=== PATIENT | female | born 1975 ===

== ENCOUNTER 2022-08-01 07:50 | Day surgery (SDC) | payer OTHER ==
[~2022-08-01] VITALS: Ht 177.8 cm; Wt 82.9 kg
[2022-08-01] MEDS ORDERED: CALCA500S6 (08:03)
[2022-08-01] MEDS ORDERED: CLOBETASOL EMOL15 G1 (08:03)
[2022-08-01] MEDS ORDERED: CLIMARA1 EACH (08:03)
[2022-08-01] MEDS ORDERED: ZINC15 (08:04)
[2022-08-01] MEDS ORDERED: Vitamin B-12100 MCG (08:04)
== END 2022-08-01 10:15 | disposition home or self-care (01) ==
LOC: ORSCSDS 07:50
PROVIDERS: Student in an Organized Health Care Education/Training Program
PROC: 0DBN8ZX Excision of Sigmoid Colon, Via Natural or Artificial Opening Endoscopic, Diagnostic (ICD-10-PCS; principal; 2022-08-01 09:00)
PROC: 0DBL8ZX Excision of Transverse Colon, Via Natural or Artificial Opening Endoscopic, Diagnostic (ICD-10-PCS; principal; 2022-08-01 09:00)
PROC: 0DBK8ZX Excision of Ascending Colon, Via Natural or Artificial Opening Endoscopic, Diagnostic (ICD-10-PCS; principal; 2022-08-01 09:00)
DX: R19.7 Diarrhea, unspecified (principal); R19.4 Change in bowel habit; Z83.71 Family history of colonic polyps; D12.3 Benign neoplasm of transverse colon; D12.2 Benign neoplasm of ascending colon; D12.5 Benign neoplasm of sigmoid colon; M79.7 Fibromyalgia; F41.9 Anxiety disorder, unspecified; Z87.891 Personal history of nicotine dependence
CPT/HCPCS: 88305; J2250; J2704; J7040; J7120